=== PATIENT | female | born 1970 | race Caucasian/White ===

== ENCOUNTER 2018-06-30 03:13 | Emergency (ER) | payer OTHER ==
[~2018-06-30] VITALS: Ht 170.2 cm; Wt 68.0 kg
[~2018-06-30 03:13] MED LIST: AMOXICILLIN 50500 MG PO; LISINOPRIL2.5 MG PO; PREDNISONE 20 M20 M1 PO; TRAMADOL 50 MG50 MG PO
[2018-06-30] MEDS ORDERED: HYDROCHLOROTHIA25 M2 PO (03:29)
[2018-06-30 04:07] LABS: URINE BLOOD TRACE (Negative); URINE CLARITY CLEAR; URINE COLOR YELLOW; URINE GLUCOSE-RANDOM NEGATIVE (Negative); URINE KETONES 2+ (Negative); URINE LEUKOCYTES-REFLEX 1+ (Negative); URINE NITRITE-REFLEX NEGATIVE (Negative); URINE PROTEIN 1+ (Negative); URINE UROBILINOGEN 0.2 E.U./dl (0.2-1.0)
[2018-06-30 04:08] LABS: URINE BILIRUBIN 1+ (Negative)
[2018-06-30 04:09] LABS: HEMATOCRIT 44.1 % (37.0-47.0); HEMOGLOBIN 14.7 gm/dL (12.0-15.0); ICTOTEST (BILI CONFIRMATORY) Negative (Negative); MCH 28.6 pg (26.0-34.0); MCHC 33.4 g/dL (28.0-37.0); MCV 85.7 fL (80.0-100.0); MPV 7.7 fl. (7.2-11.1); NUCLEATED RBCS 0 /100WBC; PLATELET COUNT* 352 thou/uL (150-400); RBC 5.15 mil/uL (4.20-5.00); RDW-CV 13.7 % (10.5-14.5); WBC 7.8 thou/uL (4.0-11.0)
[2018-06-30 04:13] LABS: CALCIUM 8.6 mg/dL (8.5-10.1); CREATININE 0.8 mg/dL (0.6-1.3); POTASSIUM 3.2 mmol/L (3.5-5.1)
[2018-06-30 04:18] LABS: ALBUMIN 3.5 g/dL (3.4-5.0); TOTAL BILIRUBIN 0.5 mg/dL (<0.1-1.0); TOTAL PROTEIN 7.3 g/dL (6.4-8.2)
[2018-06-30 04:42] LABS: CASTS None Seen /LPF (None Seen); MUCUS 4-6 Moderate strn/LPF (None Seen); SQUAMOUS >10 Many /LPF (0-3); URINE WBC-REFLEX 0-5 Rare /HPF (0-5)
[2018-06-30 04:43] LABS: CRYSTALS None Seen /LPF (None Seen); URINE RBC 0-2 Rare /HPF (0-2)
[2018-06-30] MEDS ORDERED: ZOFRAN ODT4 MG PO (04:46)
[2018-06-30] MEDS ORDERED: TORADOL 10 MG T10 MG PO (04:46)
[2018-06-30 05:10] VITALS: BP 122/80
[2018-06-30 05:29] LABS: ABSOLUTE EOSINOPHILS 0.1 thou/uL (0.0-0.7); ABSOLUTE LYMPHOCYTES 0.7 thou/uL (0.8-5.3); ABSOLUTE MONOCYTES 0.1 thou/uL (0.0-1.2); ABSOLUTE NEUTROPHILS 6.9 thou/uL (1.6-8.1); ANISOCYTOSIS 1+; PLATELET ESTIMATE ADEQUATE; POIKILOCYTOSIS 1+
== END 2018-06-30 05:10 | disposition home or self-care (01) ==
LOC: M.ERS 03:13
PROVIDERS: Personal Emergency Response Attendant
DX: K52.9 Noninfective gastroenteritis and colitis, unspecified (principal); E86.0 Dehydration; R51 Headache; I10 Essential (primary) hypertension